=== PATIENT | female | born 1975 | race African-American/Black ===

== ENCOUNTER 2018-11-09 20:15 | Inpatient (IN) ==
[2018-11-09 21:22] LABS: Apearance,Urine Slightly Hazy (Clear); Bacteria,Urine Occasional /HPF (Few); Bilirubin,Urine Negative (Negative); Blood, Urine Negative (Negative); Glucose,Urine (UA) Negative (Negative); Ketones,Urine Negative (Negative); Mucus,Urine Occasional /LPF (Occasional); Nitrite,Urine Negative (Negative); Protein,Urine Negative; RBC,Urine 8 /HPF (0-4); Squamous Epithelial Cell,Urine Occasional /HPF (0-10); Urine Color Yellow (Yellow); Urine Specific Gravity 1.026 (1.001-1.035); Urine Urobilinogen < 2.0 EU/DL (0.2-1.0); WBC,Urine 1 /HPF (0-6)
[2018-11-10] MEDS ORDERED: PANTOPRAZOLE 40 MG VIAL IV STA (01:11)
[2018-11-10] MEDS ORDERED: DICYCLOMINE 20 MG/2 ML AMP IM ONE (01:11)
[2018-11-10] MEDS ORDERED: ONDANSETRON 4 MG/2 ML VIAL IV STA (01:11)
[2018-11-10] MEDS ORDERED: METOCLOPRAMIDE 10 MG/2 ML VIAL IV STA (01:11)
[2018-11-10 02:14] LABS: Basophils % 0.1 % (0.0-0.8); Hematocrit 41.8 VOL% (35.7-47.0); Hemoglobin 13.2 GM/DL (12.0-16.0); Immature Granulocytes % 0.2 %; Immature Granulocytes Absolute 0.02 #; Lymphocytes # 2.4 10*3/uL (1.4-4.0); Mean Corpuscular HGB Conc 31.6 GM/DL (32-36); Mean Platelet Volume 9.8 FL (9.6-12.0); Monocytes % 3.3 % (1.7-12.7); Neutrophils % 69.4 % (38.7-73.9); Platelet Count 364 T/CUMM (130-400); Red Blood Count 4.86 MC/CUMM (3.8-5.5); Red Cell Distribution Width 13.2 % (9.3-17.3); White Blood Count 8.7 T/CUMM (4-12)
[2018-11-10 02:29] LABS: Albumin 4.4 G/DL (3.4-5.0); Bilirubin,Total 0.5 MG/DL (0.2-1.0); Calcium 9.7 MG/DL (8.5-10.1); Osmolality,Calculated 275.5 MOS/KG (273-304); Total Protein 8.7 G/DL (6.4-8.3)
[2018-11-10] MEDS: PANTOPRAZOLE 40 MG TABLET PO SCH (06:52)
[2018-11-10] MEDS: ONDANSETRON 4 MG/2 ML VIAL IV PRN ×3 (06:52→22:35)
[2018-11-10] MEDS: SODIUM CHLORIDE 0.9% 1,000 ML IV SCH ×2 (06:52→16:54)
[2018-11-10] MEDS: HYDROmorphone 2 MG/1 ML VIAL IV PRN ×2 (06:53→12:48)
[2018-11-10] MEDS: VENLAFAXINE 37.5 MG TABLET PO SCH (08:23)
[2018-11-10] MEDS ORDERED: ESOMEPRAZOLE MAGNESIUM 20 MG PO SCH (09:00)
[2018-11-11] MEDS ORDERED: ONDANSETRON 4 MG/2 ML VIAL IV PRN (02:01)
[2018-11-11] MEDS ORDERED: PROMETHAZINE 25 MG TABLET PO ONE (02:02)
[2018-11-11] MEDS: SODIUM CHLORIDE 0.9% 1,000 ML IV SCH (02:09)
[2018-11-11 05:35] LABS: Basophils % 0.1 % (0.0-0.8); Eosinophils % 0.1 % (0.00-10.9); Hematocrit 35.8 VOL% (35.7-47.0); Hemoglobin 11.4 GM/DL (12.0-16.0); Immature Granulocytes % 0.3 %; Immature Granulocytes Absolute 0.03 #; Lymphocytes # 2.3 10*3/uL (1.4-4.0); Lymphocytes % 24.2 % (21.3-54.2); Mean Corpuscular HGB Conc 31.8 GM/DL (32-36); Mean Corpuscular Volume 87.1 FL (87-102); Mean Platelet Volume 9.9 FL (9.6-12.0); Monocytes % 5.5 % (1.7-12.7); Neutrophils % 69.8 % (38.7-73.9); Platelet Count 305 T/CUMM (130-400); Red Blood Count 4.11 MC/CUMM (3.8-5.5); Red Cell Distribution Width 13.2 % (9.3-17.3); White Blood Count 9.6 T/CUMM (4-12)
[2018-11-11 05:48] LABS: Albumin 3.5 G/DL (3.4-5.0); Bilirubin,Total 0.9 MG/DL (0.2-1.0); Calcium 8.4 MG/DL (8.5-10.1); Osmolality,Calculated 274.5 MOS/KG (273-304); Total Protein 6.8 G/DL (6.4-8.3)
[2018-11-11] MEDS: PANTOPRAZOLE 40 MG TABLET PO SCH (09:29)
[2018-11-11 11:00] VITALS: BP 117/54
[2018-11-11] MEDS: VENLAFAXINE 37.5 MG TABLET PO SCH (12:53)
== END 2018-11-11 13:30 | disposition home or self-care (01) | DRG 390 ==
LOC: N.ED 20:15 → N.EDINP 11-10 05:26 → N.5E 11-10 05:54
PROVIDERS: ADMIT Surgery; ATTEND Surgery

== ENCOUNTER 2022-08-07 16:35 | Inpatient (IN) ==
[2022-08-07] MEDS ORDERED: ALUM/MAG/SIMETH/LIDO VISC 1:1 30 ML BOTTLE PO STA (16:55)
[2022-08-07 17:12] LABS: Basophils % 0.1 % (0.0-0.8); Hematocrit 36.3 VOL% (35.7-47.0); Hemoglobin 11.3 GM/DL (12.0-16.0); Immature Granulocytes % 0.7 %; Immature Granulocytes Absolute 0.07 #; Lymphocytes # 6.4 10*3/uL (1.4-4.0); Lymphocytes % 63.8 % (21.3-54.2); Mean Corpuscular HGB Conc 31.1 GM/DL (32-36); Mean Corpuscular Volume 88.3 FL (87-102); Mean Platelet Volume 9.1 FL (9.6-12.0); Monocytes # 0.6 10*3/uL (0.11-0.8); Monocytes % 5.6 % (1.7-12.7); Neutrophils % 29.8 % (38.7-73.9); Platelet Count 358 T/CUMM (130-400); Red Blood Count 4.11 MC/CUMM (3.8-5.5); Red Cell Distribution Width 13.2 % (9.3-17.3); White Blood Count 10.09 T/CUMM (4-12)
[2022-08-07] MEDS ORDERED: ONDANSETRON ODT 4 MG TABLET PO ONE (17:19)
[2022-08-07 17:41] LABS: Alanine Aminotransferase 19 U/L (13-56); Albumin 3.9 G/DL (3.4-5.0); Alkaline Phosphatase 87 U/L (45-117); Aspartate Amino Transferase 17 U/L (0-37); Bilirubin,Total < 0.39 MG/DL (0.20-1.00); Blood Urea Nitrogen 12 MG/DL (7-18); Carbon Dioxide 24 MMOL/L (21-32); Chloride 108 MMOL/L (98-107); Glucose 146 MG/DL (74-106); Osmolality,Calculated 283.3 MOS/KG (273-304); Potassium 2.8 MMOL/L (3.5-5.1); Sodium 141 MMOL/L (136-145); Total Protein 7.6 G/DL (6.4-8.2)
[2022-08-07] MEDS ORDERED: POTASSIUM CHLORIDE 20 MEQ TABLET PO STA ×2 (17:50→19:25)
[2022-08-07] MEDS ORDERED: ONDANSETRON ODT 4 MG TABLET PO STA (18:02)
[2022-08-07] MEDS ORDERED: ONDANSETRON 4 MG/2 ML VIAL IV PRN (19:35)
[2022-08-07] MEDS ORDERED: POTASSIUM CHLORIDE 20 MEQ TABLET PO PRN (19:41)
[2022-08-07] MEDS ORDERED: ENOXAPARIN 40 MG/0.4 ML SYRINGE SUBCUT SCH (20:00)
[2022-08-08] MEDS ORDERED: ENOXAPARIN 80 MG/0.8 ML SYRINGE SUBCUT ONE (02:30)
[2022-08-08 05:19] LABS: Basophils % 0.1 % (0.0-0.8); Hematocrit 35.4 VOL% (35.7-47.0); Hemoglobin 11.3 GM/DL (12.0-16.0); Immature Granulocytes % 0.3 %; Immature Granulocytes Absolute 0.02 #; Lymphocytes % 39.2 % (21.3-54.2); Mean Corpuscular HGB Conc 31.9 GM/DL (32-36); Mean Corpuscular Volume 89.6 FL (87-102); Mean Platelet Volume 9.5 FL (9.6-12.0); Monocytes # 0.4 10*3/uL (0.11-0.8); Neutrophils % 55.4 % (38.7-73.9); Platelet Count 325 T/CUMM (130-400); Red Blood Count 3.95 MC/CUMM (3.8-5.5); Red Cell Distribution Width 13.2 % (9.3-17.3); White Blood Count 7.76 T/CUMM (4-12)
[2022-08-08 05:42] LABS: Albumin 3.6 G/DL (3.4-5.0); Bilirubin,Total 0.4 MG/DL (0.20-1.00); Calcium 9.1 MG/DL (8.5-10.1); Potassium 3.9 MMOL/L (3.5-5.1); Risk Ratio 4.17; Total Protein 7.1 G/DL (6.4-8.2); VLDL Cholesterol 11.8 MG/DL
[2022-08-08 06:56] LABS: CKMB % 12.48 %
[2022-08-08] MEDS ORDERED: METOPROLOL TARTRATE 25 MG TABLET PO SCH (09:00)
[2022-08-08] MEDS ORDERED: diphenhydrAMINE CAP 25 MG CAPSULE PO ONE (09:20)
[2022-08-08] MEDS ORDERED: DIAZEPAM 5 MG TABLET PO ONE (09:20)
[2022-08-08] MEDS ORDERED: SODIUM CHLORIDE 0.45% 1,000 ML IV SCH (09:30)
[2022-08-08] MEDS: NITROGLYCERIN 2% OINT 1 INCH/GM PACK TOP SCH ×2 (10:14→13:11)
[2022-08-08] MEDS: PANTOPRAZOLE 40 MG TABLET PO SCH (10:16)
[2022-08-08] MEDS: ROSUVASTATIN 20 MG TABLET PO SCH (10:17)
[2022-08-08] MEDS ORDERED: HEPARIN/NACL 0.9% 2 UNITS/ML 2,000 UNIT/1,000 ML BAG IV ONE (11:02)
[2022-08-08] MEDS: ASPIRIN EC 325 MG TABLET PO SCH ×2 (11:14→12:00)
[2022-08-08] MEDS ORDERED: diphenhydrAMINE CAP 25 MG CAPSULE ONE (11:57)
[2022-08-08] MEDS ORDERED: DIAZEPAM 5 MG TABLET ONE (11:57)
[2022-08-08] MEDS ORDERED: ASPIRIN 325 MG TABLET ONE (11:59)
[2022-08-08] MEDS ORDERED: ENOXAPARIN 120 MG/0.8 ML SYRINGE SUBCUT SCH (12:00)
[2022-08-08] MEDS ORDERED: MIDAZOLAM 2 MG/2 ML VIAL ONE ×3 (12:10→12:26)
[2022-08-08] MEDS ORDERED: fentaNYL 100 MCG/2 ML VIAL ONE ×2 (12:10→12:26)
[2022-08-08] MEDS: ISOSORBIDE MONONITRATE 30 MG TABLET PO SCH (16:35)
[2022-08-08] MEDS: VENLAFAXINE 37.5 MG TABLET PO SCH (16:35)
[2022-08-08] MEDS ORDERED: DILTIAZEM CD 120 MG CAPSULE PO SCH (21:00)
[2022-08-09 06:05] LABS: Basophils % 0.1 % (0.0-0.8); Hematocrit 38.5 VOL% (35.7-47.0); Immature Granulocytes % 0.3 %; Immature Granulocytes Absolute 0.02 #; Lymphocytes # 3.3 10*3/uL (1.4-4.0); Lymphocytes % 45.3 % (21.3-54.2); Mean Corpuscular HGB Conc 31.2 GM/DL (32-36); Mean Corpuscular Volume 89.7 FL (87-102); Mean Platelet Volume 9.3 FL (9.6-12.0); Monocytes # 0.4 10*3/uL (0.11-0.8); Monocytes % 5.9 % (1.7-12.7); Neutrophils % 48.4 % (38.7-73.9); Platelet Count 324 T/CUMM (130-400); Red Blood Count 4.29 MC/CUMM (3.8-5.5); Red Cell Distribution Width 13.5 % (9.3-17.3); White Blood Count 7.24 T/CUMM (4-12)
[2022-08-09 06:15] LABS: Osmolality,Calculated 274.5 MOS/KG (273-304)
[2022-08-09] MEDS: VENLAFAXINE 37.5 MG TABLET PO SCH (08:46)
[2022-08-09] MEDS: PANTOPRAZOLE 40 MG TABLET PO SCH (08:46)
[2022-08-09] MEDS: ROSUVASTATIN 20 MG TABLET PO SCH (08:46)
[2022-08-09] MEDS: ISOSORBIDE MONONITRATE 30 MG TABLET PO SCH (08:47)
[2022-08-09] MEDS ORDERED: APIXABAN 5 MG TABLET PO SCH (09:00)
[2022-08-09] MEDS ORDERED: ASPIRIN EC 81 MG TABLET PO SCH (09:00)
[2022-08-09 09:05] VITALS: BP 122/65
== END 2022-08-09 10:24 | disposition home or self-care (01) | DRG 282 ==
LOC: N.EDINP 16:35 → N.ED 16:35 → N.EDINP 22:35 → N.2W 23:33
PROVIDERS: ADMIT Internal Medicine; ATTEND Internal Medicine